=== PATIENT | female | born 1945 | race Two or more races ===

== ENCOUNTER → 2017-06-27 09:18 | Outpatient (CLI) | payer OTHER | END | disposition home or self-care (01) | LOC: LAB 09:18 | DX: I11.9 Hypertensive heart disease without heart failure (principal); D53.9 Nutritional anemia, unspecified; N39.0 Urinary tract infection, site not specified; E04.0 Nontoxic diffuse goiter; E11.9 Type 2 diabetes mellitus without complications; E78.2 Mixed hyperlipidemia; E20.0 Idiopathic hypoparathyroidism; E83.39 Other disorders of phosphorus metabolism; E61.7 Deficiency of multiple nutrient elements; E61.2 Magnesium deficiency ==

== ENCOUNTER → 2017-09-03 | Outpatient (CLI) | payer OTHER | END | disposition home or self-care (01) | LOC: LAB 09:15 | DX: I10 Essential (primary) hypertension (principal); I11.9 Hypertensive heart disease without heart failure ==

== ENCOUNTER 2018-06-23 09:30 | Outpatient (CLI) | payer OTHER | END 2018-06-23 11:15 | disposition home or self-care (01) | LOC: LAB 09:30 | DX: E78.89 Other lipoprotein metabolism disorders (principal); E06.5 Other chronic thyroiditis; N39.0 Urinary tract infection, site not specified; I10 Essential (primary) hypertension ==

== ENCOUNTER 2018-10-25 10:08 | Outpatient (CLI) | payer OTHER | END 2018-10-25 11:16 | disposition home or self-care (01) | LOC: RAD 10:08 | DX: M79.672 Pain in left foot (principal); M77.42 Metatarsalgia, left foot ==

== ENCOUNTER 2019-02-02 07:40 | Outpatient (CLI) | payer OTHER | END 2019-02-02 15:00 | disposition home or self-care (01) | LOC: LAB 07:40 | DX: D50.8 Other iron deficiency anemias (principal); N39.0 Urinary tract infection, site not specified; I11.0 Hypertensive heart disease with heart failure; E11.9 Type 2 diabetes mellitus without complications; E78.4 Other hyperlipidemia; E55.9 Vitamin D deficiency, unspecified; E07.89 Other specified disorders of thyroid ==

== ENCOUNTER 2019-06-07 08:44 | Outpatient (CLI) | payer OTHER | END 2019-06-07 17:32 | disposition home or self-care (01) | LOC: LAB 08:44 | DX: E03.8 Other specified hypothyroidism (principal); E55.9 Vitamin D deficiency, unspecified; D64.89 Other specified anemias; D51.8 Other vitamin B12 deficiency anemias; E78.2 Mixed hyperlipidemia; N39.0 Urinary tract infection, site not specified ==

== ENCOUNTER 2019-06-30 10:20 | Outpatient (CLI) | payer OTHER | END 2019-06-30 10:31 | disposition home or self-care (01) | LOC: MAMO-SONO 10:20 | DX: Z12.31 Encounter for screening mammogram for malignant neoplasm of breast (principal); N61.0 Mastitis without abscess; N64.0 Fissure and fistula of nipple; E04.1 Nontoxic single thyroid nodule ==

== ENCOUNTER 2019-06-30 11:45 | Outpatient (CLI) | payer OTHER | END 2019-06-30 11:54 | disposition home or self-care (01) | LOC: NUCLEAR 11:45 | DX: M81.0 Age-related osteoporosis without current pathological fracture (principal); Z13.820 Encounter for screening for osteoporosis ==

== ENCOUNTER 2019-09-19 09:22 | Outpatient (CLI) | payer OTHER | END 2019-09-19 09:33 | disposition home or self-care (01) | LOC: LAB 09:22 | DX: E03.8 Other specified hypothyroidism (principal); E55.9 Vitamin D deficiency, unspecified; I10 Essential (primary) hypertension; E78.2 Mixed hyperlipidemia; D64.89 Other specified anemias; E21.2 Other hyperparathyroidism; C50.911 Malignant neoplasm of unspecified site of right female breast ==

== ENCOUNTER 2019-09-21 08:07 | Outpatient (CLI) | payer OTHER | END 2019-09-21 08:08 | disposition home or self-care (01) | LOC: TOM 08:07 | DX: C50.911 Malignant neoplasm of unspecified site of right female breast (principal) | CPT/HCPCS: 74178; Q9965 ==

== ENCOUNTER 2019-09-26 08:04 | Outpatient (CLI) | payer OTHER | END 2019-09-26 13:20 | disposition home or self-care (01) | LOC: NUCLEAR 08:04 | DX: C50.812 Malignant neoplasm of overlapping sites of left female breast (principal) | CPT/HCPCS: 78803; A9503 ==

== ENCOUNTER 2020-04-16 10:50 | Outpatient (CLI) | payer OTHER | END 2020-04-16 11:06 | disposition home or self-care (01) | LOC: TOM 10:50 | PROVIDERS: ATTEND Internal Medicine | DX: N13.39 Other hydronephrosis (principal); R31.29 Other microscopic hematuria ==

== ENCOUNTER 2020-05-14 11:13 | Outpatient (CLI) | payer OTHER | END 2020-05-14 11:22 | disposition home or self-care (01) | LOC: SONOGRAMA 11:13 | PROVIDERS: ATTEND Internal Medicine Endocrinology, Diabetes & Metabolism | DX: E04.2 Nontoxic multinodular goiter (principal); E04.1 Nontoxic single thyroid nodule ==

== ENCOUNTER → 2020-06-13 | Outpatient (CLI) | payer OTHER | END | disposition home or self-care (01) | LOC: TOM 09:30 | PROVIDERS: ATTEND Urology | DX: N20.1 Calculus of ureter (principal); C50.811 Malignant neoplasm of overlapping sites of right female breast; Z12.31 Encounter for screening mammogram for malignant neoplasm of breast ==

== ENCOUNTER 2020-07-10 09:24 | Outpatient (CLI) | payer OTHER ==
[2020-08-27] MEDS ORDERED: TRANXENE PO (15:05)
[2020-08-27] MEDS ORDERED: NAMENDA10 MG PO (15:06)
[2020-08-27] MEDS ORDERED: TAMOXIFEN CITRA20 MG PO (15:06)
[2020-08-27] MEDS ORDERED: ARICEPT10 MG PO (15:06)
[2020-08-27] MEDS ORDERED: SYNTHROID112 MCG PO (15:07)
[2020-08-27] MEDS ORDERED: [UNRECOGNIZED DRUG - OTHER] PO (15:08)
== END 2020-07-10 09:28 | disposition home or self-care (01) ==
LOC: RAD 09:24
PROVIDERS: ATTEND Urology
DX: N20.1 Calculus of ureter (principal)

== ENCOUNTER → 2020-08-07 | Outpatient (CLI) | payer OTHER ==
[~2020-08-07] MED LIST: ARICEPT10 MG PO; NAMENDA10 MG PO; SYNTHROID112 MCG PO; TAMOXIFEN CITRA20 MG PO; TRANXENE PO; [UNRECOGNIZED DRUG - OTHER] PO
== END | disposition home or self-care (01) ==
LOC: RAD 11:26
PROVIDERS: ATTEND Urology
DX: N20.1 Calculus of ureter (principal)

== ENCOUNTER 2020-09-03 05:45 | Day surgery (SDC) | payer OTHER | END 2020-09-03 14:05 | disposition home or self-care (01) | LOC: CIR.AMB 05:45 | PROVIDERS: ATTEND Urology | DX: N20.1 Calculus of ureter (principal); Z20.822 Contact with and (suspected) exposure to COVID-19 ==

== ENCOUNTER 2020-09-11 09:55 | Outpatient (CLI) | payer OTHER | END 2020-09-11 10:02 | disposition home or self-care (01) | LOC: TOM 09:55 | DX: C50.811 Malignant neoplasm of overlapping sites of right female breast (principal) ==

== ENCOUNTER 2020-10-15 14:54 | Outpatient (CLI) | payer OTHER | END 2020-10-15 15:36 | disposition home or self-care (01) | LOC: RAD 14:54 | PROVIDERS: ATTEND Urology | DX: N30.00 Acute cystitis without hematuria (principal); N20.1 Calculus of ureter ==

== ENCOUNTER 2020-11-16 07:27 | Outpatient (CLI) | payer OTHER | END 2020-11-16 07:28 | disposition home or self-care (01) | LOC: NUCLEAR 07:27 | PROVIDERS: ATTEND Internal Medicine Cardiovascular Disease | DX: I25.10 Atherosclerotic heart disease of native coronary artery without angina pectoris (principal); C34.11 Malignant neoplasm of upper lobe, right bronchus or lung | CPT/HCPCS: 78452; 93017; A9500; J0153 ==

== ENCOUNTER 2021-08-20 07:57 | Outpatient (CLI) | payer OTHER | END 2021-08-20 07:59 | disposition home or self-care (01) | LOC: NUCLEAR 07:57 | PROVIDERS: ATTEND Internal Medicine Hematology & Oncology | DX: C50.811 Malignant neoplasm of overlapping sites of right female breast (principal); C34.11 Malignant neoplasm of upper lobe, right bronchus or lung | CPT/HCPCS: 78812; A9552 ==

== ENCOUNTER 2021-11-05 12:29 | Outpatient (CLI) | payer OTHER | END 2021-11-05 12:35 | disposition home or self-care (01) | LOC: TOM 12:29 | PROVIDERS: ATTEND Internal Medicine Hematology & Oncology | DX: C50.811 Malignant neoplasm of overlapping sites of right female breast (principal); C34.11 Malignant neoplasm of upper lobe, right bronchus or lung; K63.9 Disease of intestine, unspecified ==

== ENCOUNTER 2022-08-26 07:56 | Outpatient (CLI) | payer OTHER | END 2022-08-26 07:58 | disposition home or self-care (01) | LOC: NUCLEAR 07:56 | PROVIDERS: ATTEND Internal Medicine Hematology & Oncology | DX: C50.811 Malignant neoplasm of overlapping sites of right female breast (principal); C34.11 Malignant neoplasm of upper lobe, right bronchus or lung; K63.9 Disease of intestine, unspecified | CPT/HCPCS: 78815; A9552 ==

== ENCOUNTER → 2023-01-23 | Outpatient (CLI) | payer OTHER | END | disposition home or self-care (01) | LOC: NUCLEAR 07:59 | PROVIDERS: ATTEND Internal Medicine Hematology & Oncology | DX: C50.811 Malignant neoplasm of overlapping sites of right female breast (principal); C34.11 Malignant neoplasm of upper lobe, right bronchus or lung; K63.9 Disease of intestine, unspecified | CPT/HCPCS: 78815; A9552 ==

== ENCOUNTER 2023-07-16 10:57 | Inpatient (IN) | payer OTHER ==
[~2023-07-16] VITALS: Ht 152.4 cm; Wt 61.2 kg
[2023-07-16] MEDS ORDERED: ARICEPT10 MG PO (11:17)
[2023-07-16] MEDS ORDERED: NAMENDA10 MG PO (11:18)
[2023-07-16] MEDS ORDERED: TAGRISSO80 MG PO (11:18)
[2023-07-16] MEDS ORDERED: ESCITALOPRA5 MG/5 ML PO (11:18)
[2023-07-16] MEDS ORDERED: ANASTROZOLE1 MG PO (11:18)
[2023-07-16] MEDS ORDERED: TRAZODONE HCL150 MG PO (11:19)
[2023-07-16] MEDS ORDERED: 0.9 % SODIUM CHLORIDE 1,000 ML IV SCH ×2 (11:45→18:45)
[2023-07-16 12:19] LABS: HEMATOCRIT 30.8 % (36.0-45.00); MEAN CELL VOLUME 84.4 fL (80.00-100.00); MEAN CORPUSCULAR HGB CONC 33.3 g/dl (32.0-36.0); RED BLOOD COUNT 3.65 M/uL (4.00-6.00); RED CELL DISTRIBUTION WIDTH 15.7 % (11.5-14.5)
[2023-07-16 12:33] LABS: PLATELET COUNT 129 K/uL (150-450)
[2023-07-16 12:34] LABS: HEMOGLOBIN 10.2 g/dL (12.0-15.00); MEAN CORPUSCULAR HEMOGLOBIN 27.9 pg (27.00-32.0)
[2023-07-16 12:41] LABS: CREATININE SERUM 1.65 mg/dL (0.55-1.02); GFR 29.93; POTASSIUM 4.51 mEq/L (3.5-5.1)
[2023-07-16] MEDS ORDERED: PIPERACILLIN/TAZOBACTAM SODIUM 2.25 GM VIAL IV ONE (17:45)
[2023-07-16] MEDS ORDERED: DEXTROSE 5 % AND 0.9 % NACL 1,000 ML IV SCH (18:45)
[2023-07-16] MEDS ORDERED: PANTOPRAZOLE SODIUM 40 MG/VIAL VIAL IV SCH (18:46)
[2023-07-16] MEDS ORDERED: PANTOPRAZOLE SODIUM 40 MG/VIAL VIAL IV STA (18:46)
[2023-07-16] MEDS ORDERED: CIPROFLOXACIN IN 5 % DEXTROSE 200 ML IV SCH (18:46)
[2023-07-16] MEDS ORDERED: METRONIDAZOLE/SODIUM CHLORIDE 100 ML IV SCH (18:47)
[2023-07-16] MEDS ORDERED: TRAZODONE HCL 50 MG TABLET PO SCH (21:00)
[2023-07-17 05:53] LABS: INR 1.01; PARTIAL THROMBOPLASTIN TIME 31.7 SECONDS (22.0-34.0); PROTHROMBIN TIME 10.6 SECONDS (9.0-11.5)
[2023-07-17] MEDS ORDERED: MEMANTINE HCL 10 MG TABLET PO SCH (09:00)
[2023-07-17 11:23] LABS: HEMATOCRIT 33.7 % (36.0-45.00); HEMOGLOBIN 11.1 g/dL (12.0-15.00); MEAN CELL VOLUME 84.6 fL (80.00-100.00); MEAN CORPUSCULAR HEMOGLOBIN 27.8 pg (27.00-32.0); MEAN CORPUSCULAR HGB CONC 32.8 g/dl (32.0-36.0); RED BLOOD COUNT 3.98 M/uL (4.00-6.00); RED CELL DISTRIBUTION WIDTH 15.8 % (11.5-14.5)
[2023-07-17 11:30] LABS: PLATELET COUNT 93 K/uL (150-450)
[2023-07-17 14:11] LABS: PLATELET ESTIMATE DECREASED (NORMAL)
[2023-07-17] MEDS ORDERED: EPOETIN ALFA-EPBX 10,000 UNIT/ML VIAL (Retacrit) SUBCUTANEO STA (16:35)
[2023-07-17] MEDS ORDERED: SOD FERRIC GLUC COMPLX/SUCROSE 62.5 MG/5 ML AMPUL IV STA (16:36)
[2023-07-17] MEDS ORDERED: CEFTRIAXONE SODIUM 2,000 MG VIAL IV SCH (17:57)
[2023-07-19 06:36] LABS: HEMATOCRIT 24.5 % (36.0-45.00); MEAN CELL VOLUME 82.8 fL (80.00-100.00); PLATELET COUNT 143 K/uL (150-450); RED BLOOD COUNT 2.96 M/uL (4.00-6.00); RED CELL DISTRIBUTION WIDTH 15.8 % (11.5-14.5)
[2023-07-19 06:38] LABS: HEMOGLOBIN 8.3 g/dL (12.0-15.00)
[2023-07-19 07:26] LABS: CALCIUM 9.4 mg/dL (8.5-10.1); CREATININE SERUM 1.11 mg/dL (0.55-1.02); GFR 47.29; POTASSIUM 3.73 mEq/L (3.5-5.1)
[2023-07-19] MEDS ORDERED: ONDANSETRON HCL 2 MG/ML VIAL IV ONE (17:45)
[2023-07-20] MEDS ORDERED: DIATRIZOATE MEGLUMINE, SODIUM 30 ML BOTTLE PO ONE (07:00)
[2023-07-20 13:33] LABS: ob NEGATIVE (NEGATIVE)
[2023-07-20] MEDS ORDERED: ENALAPRILAT DIHYDRATE 1.25 MG/ML VIAL IV PRN (19:15)
[2023-07-21 19:49] LABS: HEMATOCRIT 33.9 % (36.0-45.00); HEMOGLOBIN 11.6 g/dL (12.0-15.00); MEAN CELL VOLUME 80.8 fL (80.00-100.00); MEAN CORPUSCULAR HEMOGLOBIN 27.7 pg (27.00-32.0); MEAN CORPUSCULAR HGB CONC 34.3 g/dl (32.0-36.0); PLATELET COUNT 191 K/uL (150-450); RED BLOOD COUNT 4.19 M/uL (4.00-6.00); RED CELL DISTRIBUTION WIDTH 15.9 % (11.5-14.5)
[2023-07-21] MEDS ORDERED: FUROsemide 20 MG/2 ML VIAL IV STA (20:16)
[2023-07-21] MEDS ORDERED: PANTOPRAZOLE SODIUM 40 MG/VIAL VIAL IV SCH (20:29)
[2023-07-21] MEDS ORDERED: ONDANSETRON HCL 2 MG/ML VIAL IV PRN (20:30)
[2023-07-22 21:09] LABS: CALCIUM 9.3 mg/dL (8.5-10.1); GFR 53.35
[2023-07-22 21:35] LABS: POTASSIUM 2.86 mEq/L (3.5-5.1)
[2023-07-22] MEDS ORDERED: POTASSIUM CHLORIDE 20MEQ/100ML H2O PB IV SCH (21:45)
[2023-07-23 09:05] LABS: CALCIUM 9.3 mg/dL (8.5-10.1); CREATININE SERUM 1.04 mg/dL (0.55-1.02); GFR 50.99; POTASSIUM 3.41 mEq/L (3.5-5.1)
[2023-07-24 07:01] LABS: HEMATOCRIT 33.4 % (36.0-45.00); HEMOGLOBIN 11.2 g/dL (12.0-15.00); MEAN CELL VOLUME 81.6 fL (80.00-100.00); MEAN CORPUSCULAR HEMOGLOBIN 27.4 pg (27.00-32.0); MEAN CORPUSCULAR HGB CONC 33.5 g/dl (32.0-36.0); RED BLOOD COUNT 4.09 M/uL (4.00-6.00); RED CELL DISTRIBUTION WIDTH 16.3 % (11.5-14.5)
[2023-07-24 07:20] LABS: PLATELET COUNT 92 K/uL (150-450)
[2023-07-24 07:34] LABS: ALBUMIN 2.2 gm/dL (3.4-5.0); BILIRUBIN TOTAL 0.27 mg/dL (0.3-1.2); CALCIUM 9.2 mg/dL (8.5-10.1); CREATININE SERUM 0.96 mg/dL (0.55-1.02); GFR 55.92; GLOBULINA 2.7 G/DL (2.4-3.5); POTASSIUM 3.57 mEq/L (3.5-5.1); TOTAL PROTEIN 4.9 gm/dL (6.4-8.2)
[2023-07-24] MEDS ORDERED: NYSTATIN 15 GM,SILVER SULFADIAZINE 50 GM,ZINC OXIDE 30 GM TOP SCH (09:00)
[2023-07-25] MEDS ORDERED: PANTOPRAZOLE SODIUM 40 MG TABLET.DR PO SCH (09:00)
== END 2023-07-25 13:25 | disposition home or self-care (01) | DRG 392 ==
LOC: ER 10:57 → SEC-K 19:26 → MEDI 23:41
PROVIDERS: Emergency Medicine; Internal Medicine; Student in an Organized Health Care Education/Training Program; ADMIT Internal Medicine; ATTEND Internal Medicine
PROC: BW21YZZ Computerized Tomography (CT Scan) of Abdomen and Pelvis using Other Contrast (ICD-10-PCS; principal; 2023-07-16)
PROC: BW21YZZ Computerized Tomography (CT Scan) of Abdomen and Pelvis using Other Contrast (ICD-10-PCS; 2023-07-19)
PROC: 30233N1 Transfusion of Nonautologous Red Blood Cells into Peripheral Vein, Percutaneous Approach (ICD-10-PCS; 2023-07-20)
PROC: 02HV33Z Insertion of Infusion Device into Superior Vena Cava, Percutaneous Approach (ICD-10-PCS; 2023-07-22)
DX: K57.32 Diverticulitis of large intestine without perforation or abscess without bleeding (principal); K62.5 Hemorrhage of anus and rectum; C34.90 Malignant neoplasm of unspecified part of unspecified bronchus or lung; D64.9 Anemia, unspecified; G30.9 Alzheimer's disease, unspecified; F02.80 Dementia in other diseases classified elsewhere, unspecified severity, without behavioral disturbance, psychotic disturbance, mood disturbance, and anxiety; E03.9 Hypothyroidism, unspecified